=== PATIENT | male | born 1970 | race American Indian/Alaskan Native ===

== ENCOUNTER 2020-05-07 23:34 | Emergency (ER) | payer SELFPAY ==
[2020-05-07 23:49] VITALS: BP 161/95
--- NOTE | 2020-05-08 00:47 | XRay Report ---
XR finger(s) 2+V RT INDICATION: hit finger with hammer. COMPARISON: None available. FINDINGS: There is soft tissue swelling in the distal index finger. There is no acute fracture. There are no ra diopaque foreign bodies. Signer Name: Alex Oneal MD Signed: 05/08/2020 12:47 AM Workstation Name: [id number]
[2020-05-08] MEDS ORDERED: IBUPROFEN 600 MG TAB PO ONE (01:30)
[2020-05-08] MEDS ORDERED: LIDOCAINE-MPF (1%) 10 MG/1 ML VIAL 5 ML INFILTRATI ONE (01:30)
--- NOTE | 2020-05-08 01:33 | Emergency Department Report ---
ED Laceration HPI - HPI Chief Complaint: Wound/Laceration Stated Complaint: RT FINGER LAC Time Seen by Provider: 05/08/20 01:29 Occurred When: Today Severity: moderate Tetanus Status: Up to Date Laceration Symptoms: Yes Pain, No Foreign Body Sensation, No Numbness, No Weakness Other History: The patient was evaluated in the emergency department for symptoms described in the history of present illness. He/she was evaluated in the context of the global COVID-19 pandemic, which necessitated consideration that the patient might be at risk for infection with the virus that causes COVID-19. Institutional protocols and algorithms that pertain to the evaluation of patients at risk for COVID-19 are in a state of rapid change based on information released by regulatory bodies including the CDC and federal and state organizations. These policies and algorithms were followed during the patient's care in the emergency department. Please note that these policies, procedures and recommendations changed on a rapid basis. 49-year-old - [place] male presents to the emergency room for right index finger injury. Patient states that he had hit his finger with a hammer around 7:00. Patient states he continues to bleed. Dressing in triage. No past medical history. ED Review of Systems ROS: Stated complaint: RT FINGER LAC Other details as noted in HPI Comment: All other systems reviewed and negative ED Past Medical Hx - Past Medical History Previous Medical History?: No - Surgical History Past Surgical History?: No - Social History Smoking Status: Never Smoker Substance Use Type: None - Medications Home Medications: Home Medications Medication Instructions Recorded Confirmed Last Taken Type Ibuprofen [Motrin 600 MG tab] 600 mg PO Q8H PRN #21 tablet 05/08/20 Unknown Rx cephALEXin [Keflex] 500 mg PO Q12HR 7 Days #14 cap 05/08/20 Unknown Rx Laceration Physical Exam - Exam General: Vital signs noted. No distress. Alert and acting appropriately. Wound Length (cm): 2 Laceration Location: Upper Extremity (Right index) Laceration Exam: Yes Normal Distal CMS, No Foreign Body, No Exposed Tendon, Vessel, or Nerve, No Tendon Injury ED Course Vital Signs 05/07/20 23:46 Temperature 98.1 F Pulse Rate 82 Respiratory 18 Rate Blood Pressure 161/95 O2 Sat by Pulse 100 Oximetry - Laceration /Wound Repair Right Finger Wound Location: upper extremity (Right index finger) Wound Length (cm): 2 Wound's Depth, Shape: into muscle, irregular, flap, stellate Wound Explored: no foreign body removed Irrigated w/ Saline (ccs): 150 Betadine Prep?: Yes Anesthesia: 1% Lidocaine Volume Anesthetic (ccs): 3 Wound Debrided: minimal Suture Size/Type: 3:0, proline Number of Sutures: 6 Layer Closure?: No Sterile Dressing Applied?: Yes ED Medical Decision Making - Radiology Data Radiology results: report reviewed [facility] [address] [place] [address] XRay Report Signed Patient: NIMO GOODEN MR#: [id number] : 1970 Acct:[id number] Age/Sex: 49 / M ADM Date: 05/07/20 Loc: ED Attending Dr: Ordering Physician: LAURENCE GARCIA Date of Service: 05/07/20 Procedure(s): XR finger(s) 2+V RT Accession Number(s): [id number] cc: LAURENCE GARCIA Fluoro Time In Minutes: XR finger(s) 2+V RT INDICATION: hit finger with hammer. COMPARISON: None available. FINDINGS: There is soft tissue swelling in the distal index finger. There is no acute fracture. There are no radiopaque foreign bodies. Signer Name: Alex Oneal MD Signed: 05/08/2020 12:47 AM Workstation Name: [id number] Transcribed By: OSCAR Dictated By: Alex Oneal MD Electronically Authenticated By: Alex Oneal MD Signed Date/Time: 05/08/2046 DD/ TD/TT: - Medical Decision Making 49-year-old -Malaysian male presents to the emergency room for right index finger injury. Patient states that he had hit his finger with a hammer around 7:00. Patient states he continues to bleed. Dressing in triage. No past medical history. Ibuprofen for pain management. Patient reports up-to-date last tetanus. Suture repair. Patient to return back to the emergency room in 7 to 10 days to have sutures removed. Patient will be placed on Keflex for prophylactic infection. Critical care attestation.: If time is entered above; I have spent that time in minutes in the direct care of this critically ill patient, excluding procedure time. ED Disposition Clinical Impression: Laceration Disposition: DC-01 TO HOME OR SELFCARE Is pt being admited?: No Does the pt Need Aspirin: No Condition: Stable Instructions: Laceration Care, Adult, Sutures, Rl, or Adhesive Wound Closure, [id number] Additional Instructions: Complete antibiotics as prescribed pain medication as needed. Dressing change daily return back in 7 to 10 days to have sutures removed. Prescriptions: cephALEXin [Keflex] 500 mg PO Q12HR 7 Days #14 cap Ibuprofen [Motrin 600 MG tab] 600 mg PO Q8H PRN #21 tablet PRN Reason: Pain Referrals: PRIMARY CARE, [Primary Care Provider] - 3-5 Days Forms: Work/School Release Form(ED)
== END 2020-05-08 02:10 | disposition home or self-care (01) ==
LOC: ED 23:34
DX: S61.210A Laceration without foreign body of right index finger without damage to nail, initial encounter (principal); Z79.899 Other long term (current) drug therapy; X58.XXXA Exposure to other specified factors, initial encounter; Y93.89 Activity, other specified; Y92.89 Other specified places as the place of occurrence of the external cause; Y99.8 Other external cause status